=== PATIENT | female | born 1975 ===

== ENCOUNTER 2021-08-05 13:19 | Emergency (ER) | payer OTHER ==
[~2021-08-05] VITALS: Ht 154.9 cm; Wt 59.0 kg
[2021-08-05 13:19] VITALS: BP 116/77
[2021-08-05 14:50] LABS: Basophils # (auto) 0 10 ^3/uL (0-0.2); Basophils % (auto) 0.3 % (0.0-2.0); Eosinophils # (auto) 0.1 10 ^3/uL (0-0.8); Eosinophils % (auto) 1.4 % (0.0-7.0); Hematocrit 41.7 % (36.0-46.0); Hemoglobin 13.9 g/dL (12.2-16.2); Lymphocytes # (auto) 1.4 10 ^3/uL (0.4-5.4); Lymphocytes % (auto) 19.5 % (10.0-50.0); Mean Corpuscular Hemoglobin 30.2 pg (28.0-32.0); Mean Corpuscular Hgb Conc. 33.3 g/dL (32.0-36.0); Mean Corpuscular Volume 90.8 fL (80.0-100.0); Monocytes # (auto) 0.7 10 ^3/uL (0-1.3); Neutrophils # (auto) 5.1 10 ^3/uL (1.6-8.6); Neutrophils % (auto) 69.8 % (37.0-80.0); Nucleated Red Blood Cells % 0.1 %; Red Blood Cells 4.59 10^6/uL (4.0-5.20); Red Cell Distribution Width 13.8 % (11.8-14.3); White Blood Cell 7.3 10^3/uL (4.4-10.8)
[2021-08-05 15:07] LABS: Albumin 4.1 g/dL (3.4-5.0); Calcium 9.2 mg/dL (8.5-10.1); Potassium 3.9 mmol/L (3.5-5.1)
[2021-08-05 15:13] LABS: BUN/Creatinine Ratio 18.6; Bilirubin, Total 0.4 mg/dL (0.2-1.0); Total Protein 7.7 g/dL (6.4-8.2)
[2021-08-05] MEDS ORDERED: AZIT250T9 PO (18:06)
== END 2021-08-05 20:54 | disposition home or self-care (01) ==
LOC: ER 13:19
DX: U07.1 COVID-19 (principal); J06.9 Acute upper respiratory infection, unspecified; J45.909 Unspecified asthma, uncomplicated; Z90.89 Acquired absence of other organs
CPT/HCPCS: 36415; 71045; 80053; 84484; 85025; 87426; 93005